=== PATIENT | female | born 1990 | race Caucasian/White ===

== ENCOUNTER 2017-09-17 16:32 | Emergency (ER) | payer SELFPAY ==
[~2017-09-17] VITALS: Ht 165.1 cm; Wt 93.3 kg
[2017-09-17] MEDS ORDERED: DIAZEPAM 5 MG TABLET PO ONE (17:30)
[2017-09-17] MEDS ORDERED: KETOROLAC 30 MG/1 ML IM ONE (17:30)
[2017-09-17] MEDS ORDERED: DIAZEPAM 5 MG TABLET ONE (17:33)
[2017-09-17] MEDS ORDERED: KETOROLAC 30 MG/1 ML ONE (17:34)
[2017-09-17 17:50] VITALS: BP 132/86
== END 2017-09-17 18:00 | disposition home or self-care (01) ==
LOC: ED 17:50
DX: S39.012A Strain of muscle, fascia and tendon of lower back, initial encounter (principal); M54.32 Sciatica, left side; E11.9 Type 2 diabetes mellitus without complications; F17.200 Nicotine dependence, unspecified, uncomplicated; X58.XXXA Exposure to other specified factors, initial encounter; Y93.89 Activity, other specified; Y92.89 Other specified places as the place of occurrence of the external cause; Y99.0 Civilian activity done for income or pay
CPT/HCPCS: 72110; 96372; 99284; J1885; J7512